=== PATIENT | male | born 1970 | race Caucasian/White ===

== ENCOUNTER 2025-03-29 14:26 | Inpatient (IN) | payer OTHER ==
[2025-03-29] VITALS (9 sets, daily range): BP systolic 119–152; BP diastolic 78–98; TEMP 98.5; O2SAT 94–99
[~2025-03-29] VITALS: Ht 182.9 cm; Wt 169.6 kg
[2025-03-29 14:47] LABS: BASOPHILS % (AUTO) 0.2 % (0.0-2.0); DIFFERENTIAL COMMENT 1; EOSINOPHILS # (AUTO) 0.2 K/uL (0.0-0.7); EOSINOPHILS % (AUTO) 3.7 % (0.0-7.0); HEMATOCRIT 34.5 % (36.7-47.1); LYMPHOCYTES # (AUTO) 1.4 K/uL (0.8-4.8); LYMPHOCYTES % (AUTO) 22.3 % (20.5-51.5); MEAN CORPUSCULAR HEMOGLOBIN 29.6 uug (23.8-33.4); MEAN CORPUSCULAR HGB CONC 32 g/dL (32.5-36.3); MEAN CORPUSCULAR VOLUME 93.3 fL (73.0-96.2); MONOCYTES # (AUTO) 0.7 K/uL (0.1-1.30); NEUTROPHILS % (AUTO) 62.8 % (38.5-71.5); PLATELET COUNT (AUTO) 174 K/uL (152-348); WHITE BLOOD COUNT (AUTO) 6.4 K/uL (3.6-10.2)
[2025-03-29] MEDS ORDERED: MODA100T29 PO (15:04)
[2025-03-29] MEDS ORDERED: DAPA10TA PO (15:04)
[2025-03-29] MEDS ORDERED: CHOL10005 PO (15:04)
[2025-03-29] MEDS ORDERED: GUAI177L6 PO (15:04)
[2025-03-29] MEDS ORDERED: METO25TA6 PO (15:04)
[2025-03-29] MEDS ORDERED: MAGN400O6 PO (15:04)
[2025-03-29] MEDS ORDERED: ASPI81TA31 PO (15:04)
[2025-03-29] MEDS ORDERED: APIX5TAB PO (15:04)
[2025-03-29] MEDS ORDERED: ATOR80TA PO (15:04)
[2025-03-29] MEDS ORDERED: CALC-167 PO (15:04)
[2025-03-29] MEDS ORDERED: NA P133E RC (15:04)
[2025-03-29] MEDS ORDERED: MULT-1275 PO (15:04)
[2025-03-29] MEDS ORDERED: FAMO10TA41 PO (15:04)
[2025-03-29] MEDS ORDERED: POLY17PO4 PO (15:04)
[2025-03-29] MEDS ORDERED: BUDE10.22 INH (15:04)
[2025-03-29] MEDS ORDERED: ACET-3117 PO (15:04)
[2025-03-29] MEDS ORDERED: FURO-151 PO (15:04)
[2025-03-29] MEDS ORDERED: DOCU100T2 PO (15:04)
[2025-03-29] MEDS ORDERED: FLUO20CA42 PO (15:04)
[2025-03-29] MEDS ORDERED: METO-356 PO (15:04)
[2025-03-29] MEDS ORDERED: ASCO500C6 PO (15:04)
[2025-03-29] MEDS ORDERED: AMIN236L PO (15:04)
[2025-03-29] MEDS ORDERED: MELA3CAP2 PO (15:04)
[2025-03-29] MEDS ORDERED: ACET-73 PO (15:04)
[2025-03-29] MEDS ORDERED: BISA10SU12 RC (15:04)
[2025-03-29 15:10] LABS: ABG BASE EXCESS 19.3 mmol/L (-2.0-3.0); ABG HCO3 53.1 mmol/L (21.0-28.0); ABG PCO2 142.3 mmHg (35.0-48.0); ABG PO2 308.7 mmHg (83.0-108.0); ABG TOTAL HEMOGLOBIN 11.9 G/dL (13.5-17.5); AaDO2 99.5 mmHg; COHb 0.4 % (0.5-1.5); MetHb 0.2 % (0.0-1.5)
[2025-03-29 15:10] LABS: ALBUMIN 2.8 g/dL (3.4-5.0); BILIRUBIN,DIRECT 0.2 mg/dL (0.0-0.2); BILIRUBIN,TOTAL 0.7 mg/dL (0.2-1.0); CREATININE 1.2 mg/dL (0.6-1.3); POTASSIUM 4.1 mmol/L (3.5-5.1); TOTAL PROTEIN, SERUM 8.9 g/dL (6.4-8.2)
[2025-03-29] MEDS ORDERED: BISACODYL 10 MG SUPP.RECT RC PRN (16:00)
[2025-03-29] MEDS ORDERED: HOME MED MISCELLANEOUS XX SCH ×2 (16:00)
[2025-03-29] MEDS ORDERED: MIRALAX 17 GM POWD.PACK PO PRN (16:00)
[2025-03-29] MEDS ORDERED: FLEET ENEMA 133 ML BOTTLE RC PRN (16:00)
[2025-03-29] MEDS ORDERED: ALBUTEROL SULFATE 2.5 MG/3 ML NEBU NEB PRN (16:15)
[2025-03-29] MEDS ORDERED: IPRATROPIUM BROMIDE 0.5 MG/2.5 ML NEBU NEB PRN (16:15)
[2025-03-29] MEDS ORDERED: ACETAMINOPHEN 325 MG TABLET PO PRN (16:15)
[2025-03-29] MEDS ORDERED: ONDANSETRON 4 MG/2 ML VIAL IV PRN (16:15)
[2025-03-29 16:29] LABS: ABG BASE EXCESS 17.1 mmol/L (-2.0-3.0); ABG HCO3 47.2 mmol/L (21.0-28.0); ABG PCO2 93.7 mmHg (35.0-48.0); ABG PO2 56.8 mmHg (83.0-108.0); ABG SITE RIGHT RADIAL; ABG TOTAL HEMOGLOBIN 11.8 G/dL (13.5-17.5); COHb 0.9 % (0.5-1.5); MetHb 0.2 % (0.0-1.5); O2Hb 88.1 % (94.0-98.0)
[2025-03-29] MEDS ORDERED: METOPROLOL TARTRATE 25 MG TABLET PO SCH (17:00)
[2025-03-29] MEDS: methylPREDNISolone SOD SUCC 125 MG/2 ML VIAL IV ONE (17:14)
[2025-03-29] MEDS ORDERED: methylPREDNISolone SOD SUCC 125 MG/2 ML VIAL ONE (17:14)
[2025-03-29] MEDS: CALCIUM CARB/VITAMIN D 500MG-200UNITS TABLET PO SCH (18:53)
[2025-03-29] MEDS: FAMOTIDINE 20 MG TABLET PO SCH (18:53)
[2025-03-29] MEDS ORDERED: DOCU250C14 PO (19:03)
[2025-03-29] MEDS ORDERED: ASPI-1101 PO (19:04)
[2025-03-29] MEDS ORDERED: BUDE10.2 INH (19:08)
[2025-03-29] MEDS ORDERED: BISA10SU61 RC (19:09)
[2025-03-29] MEDS ORDERED: CALC-995 PO (19:11)
[2025-03-29] MEDS: FUROSEMIDE 40 MG/4 ML VIAL IV SCH (19:55)
[2025-03-29] MEDS: ATORVASTATIN 40 MG TABLET PO SCH (20:05)
[2025-03-29] MEDS: APIXABAN 5 MG TABLET PO SCH (20:06)
[2025-03-29] MEDS ORDERED: DOCUSATE SODIUM 100 MG/10 ML LIQUID UDC NG SCH (21:00)
[2025-03-29] MEDS: methylPREDNISolone SOD SUCC 40 MG/ML VIAL IV SCH (21:28)
[2025-03-30] VITALS (29 sets, daily range): BP systolic 96–148; BP diastolic 65–118; TEMP 97.9–98.7; O2SAT 87–100
[2025-03-30 04:55] LABS: BASOPHILS % (AUTO) 0.4 % (0.0-2.0); HEMATOCRIT 36.8 % (36.7-47.1); HEMOGLOBIN 11.8 g/dL (12.5-16.3); LYMPHOCYTES # (AUTO) 0.7 K/uL (0.8-4.8); LYMPHOCYTES % (AUTO) 13.1 % (20.5-51.5); MEAN CORPUSCULAR HEMOGLOBIN 29.1 uug (23.8-33.4); MEAN CORPUSCULAR HGB CONC 32 g/dL (32.5-36.3); MEAN CORPUSCULAR VOLUME 91.3 fL (73.0-96.2); MONOCYTES # (AUTO) 0.1 K/uL (0.1-1.30); MONOCYTES % (AUTO) 1.1 % (0.0-11.0); NEUTROPHILS # (AUTO) 4.3 K/uL (1.8-8.9); NEUTROPHILS % (AUTO) 85.4 % (38.5-71.5); PLATELET COUNT (AUTO) 198 K/uL (152-348); RED BLOOD CELL COUNT(AUTO) 4.04 MIL/uL (4.06-5.63); RED CELL DISTRIBUTION WIDTH 13.8 % (12.1-16.2)
[2025-03-30 05:02] LABS: DIFFERENTIAL COMMENT 1
[2025-03-30 05:08] LABS: CALCIUM 9.6 mg/dL (8.5-10.1); MAGNESIUM 2.1 mg/dL (1.8-2.4); PHOSPHOROUS 2.4 mg/dL (2.5-4.9); POTASSIUM 4.5 mmol/L (3.5-5.1)
[2025-03-30 05:16] LABS: THYROID STIMULATING HORMONE 0.607 mIU/mL (0.358-3.740)
[2025-03-30] MEDS: ASCORBIC ACID 500 MG TABLET PO SCH (08:16)
[2025-03-30] MEDS: MULTIVITAMINS,THERAPEUTIC TABLET PO SCH (08:16)
[2025-03-30] MEDS: MODAFINIL 100 MG TABLET PO SCH (08:17)
[2025-03-30] MEDS: ASPIRIN 81 MG TAB.CHEW PO SCH (08:17)
[2025-03-30] MEDS: METOPROLOL SUCCINATE XL 25 MG TAB.SR.24H PO SCH (08:17)
[2025-03-30] MEDS: CHOLECALCIFEROL 1,000 UNIT TABLET PO SCH (08:17)
[2025-03-30] MEDS: DAPAGLIFLOZIN PROPANEDIOL 10 MG TABLET PO SCH (08:18)
[2025-03-30] MEDS: FLUOXETINE HCL 20 MG CAPSULE PO SCH (08:19)
[2025-03-30] MEDS: PROTEIN SUPPLEMENT (PROSTAT) 30 ML LIQUID PO SCH (08:20)
[2025-03-30] MEDS: CEFTRIAXONE 1 G in IV DEXTROSE 5% 50 ML IV SCH (08:44)
[2025-03-30] MEDS: DOCUSATE SODIUM 250 MG CAPSULE PO SCH (08:45)
[2025-03-30] MEDS: AZITHROMYCIN IV 500 MG in IV DEXTROSE 5% 250 ML IV SCH (08:45)
[2025-03-30] MEDS: ACETAzolamide SODIUM 500 MG VIAL IV SCH (08:47)
[2025-03-30 10:10] LABS: ABG BASE EXCESS 11.4 mmol/L (-2.0-3.0); ABG HCO3 39.6 mmol/L (21.0-28.0); ABG PCO2 72.6 mmHg (35.0-48.0); ABG PH 7.355 (7.350-7.450); ABG PO2 72.9 mmHg (83.0-108.0); ABG SITE RIGHT RADIAL; ABG TOTAL HEMOGLOBIN 12.1 G/dL (13.5-17.5); AaDO2 93.4 mmHg; COHb 0.6 % (0.5-1.5); MetHb 0.2 % (0.0-1.5); O2Hb 93.2 % (94.0-98.0)
[2025-03-30] MEDS: IPRATROPIUM BROMIDE 0.5 MG/2.5 ML NEBU NEB SCH (13:56)
[2025-03-30] MEDS: ALBUTEROL SULFATE 2.5 MG/3 ML NEBU NEB SCH (13:57)
[2025-03-30] MEDS: NEUTRA PHOS PACKET PO ONE (16:53)
[2025-03-31] VITALS (31 sets, daily range): BP systolic 89–130; BP diastolic 55–82; TEMP 96.3–98.5; O2SAT 84–100
[2025-03-31 05:03] LABS: BASOPHILS % (AUTO) 0.4 % (0.0-2.0); HEMATOCRIT 33.7 % (36.7-47.1); HEMOGLOBIN 10.9 g/dL (12.5-16.3); LYMPHOCYTES # (AUTO) 0.7 K/uL (0.8-4.8); LYMPHOCYTES % (AUTO) 8.5 % (20.5-51.5); MEAN CORPUSCULAR HEMOGLOBIN 29.4 uug (23.8-33.4); MEAN CORPUSCULAR HGB CONC 32 g/dL (32.5-36.3); MEAN CORPUSCULAR VOLUME 90.5 fL (73.0-96.2); MONOCYTES # (AUTO) 0.5 K/uL (0.1-1.30); NEUTROPHILS # (AUTO) 6.5 K/uL (1.8-8.9); NEUTROPHILS % (AUTO) 84.1 % (38.5-71.5); PLATELET COUNT (AUTO) 240 K/uL (152-348); RED BLOOD CELL COUNT(AUTO) 3.73 MIL/uL (4.06-5.63); RED CELL DISTRIBUTION WIDTH 13.9 % (12.1-16.2); WHITE BLOOD COUNT (AUTO) 7.8 K/uL (3.6-10.2)
[2025-03-31 05:12] LABS: DIFFERENTIAL COMMENT 1
[2025-03-31 05:17] LABS: CALCIUM 9.6 mg/dL (8.5-10.1); CREATININE 0.9 mg/dL (0.6-1.3); PHOSPHOROUS 2.1 mg/dL (2.5-4.9); POTASSIUM 4.9 mmol/L (3.5-5.1)
[2025-03-31 06:21] LABS: ABG PCO2 71.1 mmHg (35.0-48.0); ABG PH 7.368 (7.350-7.450); ABG SITE LEFT RADIAL; AaDO2 93.8 mmHg; COHb 0.5 % (0.5-1.5); MetHb 0.2 % (0.0-1.5); O2Hb 93.6 % (94.0-98.0)
[2025-03-31] MEDS: MAGNESIUM HYDROXIDE 30 ML LIQUID UDC PO PRN (06:37)
[2025-03-31] MEDS: NEUTRA PHOS PACKET PO ONE (11:21)
[2025-03-31] MEDS: MUPIROCIN 2% OINT 22 GM TUBE NS SCH (20:13)
[2025-03-31] MEDS: methylPREDNISolone SOD SUCC 40 MG/ML VIAL IV SCH (20:14)
[2025-04-01] VITALS (19 sets, daily range): BP systolic 91–125; BP diastolic 49–91; TEMP 97.6–98; O2SAT 90–99
[2025-04-01 05:06] LABS: BASOPHILS % (AUTO) 0.3 % (0.0-2.0); HEMATOCRIT 34.4 % (36.7-47.1); HEMOGLOBIN 11.1 g/dL (12.5-16.3); LYMPHOCYTES # (AUTO) 1.2 K/uL (0.8-4.8); LYMPHOCYTES % (AUTO) 13.9 % (20.5-51.5); MEAN CORPUSCULAR HEMOGLOBIN 29.2 uug (23.8-33.4); MEAN CORPUSCULAR HGB CONC 32 g/dL (32.5-36.3); MEAN CORPUSCULAR VOLUME 90.1 fL (73.0-96.2); MONOCYTES # (AUTO) 0.5 K/uL (0.1-1.30); MONOCYTES % (AUTO) 6.2 % (0.0-11.0); NEUTROPHILS # (AUTO) 6.7 K/uL (1.8-8.9); NEUTROPHILS % (AUTO) 79.6 % (38.5-71.5); PLATELET COUNT (AUTO) 248 K/uL (152-348); RED BLOOD CELL COUNT(AUTO) 3.81 MIL/uL (4.06-5.63); RED CELL DISTRIBUTION WIDTH 14.1 % (12.1-16.2); WHITE BLOOD COUNT (AUTO) 8.5 K/uL (3.6-10.2)
[2025-04-01 05:10] LABS: DIFFERENTIAL COMMENT 1
[2025-04-01 05:34] LABS: ALBUMIN 2.7 g/dL (3.4-5.0); BILIRUBIN,DIRECT 0.1 mg/dL (0.0-0.2); BILIRUBIN,TOTAL 0.4 mg/dL (0.2-1.0); CALCIUM 9.2 mg/dL (8.5-10.1); MAGNESIUM 2.3 mg/dL (1.8-2.4); PHOSPHOROUS 2.3 mg/dL (2.5-4.9); POTASSIUM 4.7 mmol/L (3.5-5.1); THYROID STIMULATING HORMONE 0.966 mIU/mL (0.358-3.740); TOTAL PROTEIN, SERUM 8.3 g/dL (6.4-8.2)
[2025-04-01] MEDS: CEFTRIAXONE 2 G in IV DEXTROSE 5% 100 ML IV SCH (08:06)
[2025-04-01] MEDS: FUROSEMIDE 40 MG TABLET PO SCH (09:33)
[2025-04-01] MEDS: VANCOMYCIN IV 2,000 MG in IV DEXTROSE 5% 500 ML IV SCH (10:42)
[2025-04-01] MEDS: NEUTRA PHOS PACKET PO ONE (16:25)
[2025-04-02] VITALS (13 sets, daily range): BP systolic 99–115; BP diastolic 52–69; TEMP 97.8–98.8; O2SAT 95–100
[2025-04-02 06:47] LABS: BASOPHILS % (AUTO) 0.5 % (0.0-2.0); EOSINOPHILS % (AUTO) 0.1 % (0.0-7.0); HEMATOCRIT 35.3 % (36.7-47.1); HEMOGLOBIN 11.1 g/dL (12.5-16.3); LYMPHOCYTES # (AUTO) 1.2 K/uL (0.8-4.8); LYMPHOCYTES % (AUTO) 14.1 % (20.5-51.5); MEAN CORPUSCULAR HEMOGLOBIN 28.9 uug (23.8-33.4); MEAN CORPUSCULAR HGB CONC 32 g/dL (32.5-36.3); MEAN CORPUSCULAR VOLUME 91.7 fL (73.0-96.2); MONOCYTES # (AUTO) 0.5 K/uL (0.1-1.30); MONOCYTES % (AUTO) 6.6 % (0.0-11.0); NEUTROPHILS # (AUTO) 6.5 K/uL (1.8-8.9); NEUTROPHILS % (AUTO) 78.7 % (38.5-71.5); PLATELET COUNT (AUTO) 261 K/uL (152-348); RED BLOOD CELL COUNT(AUTO) 3.85 MIL/uL (4.06-5.63); RED CELL DISTRIBUTION WIDTH 14.3 % (12.1-16.2); WHITE BLOOD COUNT (AUTO) 8.3 K/uL (3.6-10.2)
[2025-04-02 06:55] LABS: DIFFERENTIAL COMMENT 1
[2025-04-02 06:58] LABS: CALCIUM 9.4 mg/dL (8.5-10.1); MAGNESIUM 2.3 mg/dL (1.8-2.4); PHOSPHOROUS 3.2 mg/dL (2.5-4.9)
[2025-04-02] MEDS: AZITHROMYCIN 250 MG TABLET PO SCH (09:25)
[2025-04-02] MEDS: methylPREDNISolone SOD SUCC 40 MG/ML VIAL IV SCH (09:26)
[2025-04-03] VITALS (12 sets, daily range): BP systolic 95–154; BP diastolic 52–78; TEMP 97.3–98; O2SAT 95–99
[2025-04-03 06:51] LABS: BASOPHILS % (AUTO) 0.2 % (0.0-2.0); EOSINOPHILS % (AUTO) 0.1 % (0.0-7.0); HEMATOCRIT 36.7 % (36.7-47.1); HEMOGLOBIN 11.9 g/dL (12.5-16.3); LYMPHOCYTES # (AUTO) 1.4 K/uL (0.8-4.8); LYMPHOCYTES % (AUTO) 15.2 % (20.5-51.5); MEAN CORPUSCULAR HEMOGLOBIN 29.5 uug (23.8-33.4); MEAN CORPUSCULAR HGB CONC 33 g/dL (32.5-36.3); MEAN CORPUSCULAR VOLUME 90.8 fL (73.0-96.2); MONOCYTES # (AUTO) 0.6 K/uL (0.1-1.30); NEUTROPHILS % (AUTO) 77.5 % (38.5-71.5); PLATELET COUNT (AUTO) 289 K/uL (152-348); RED BLOOD CELL COUNT(AUTO) 4.04 MIL/uL (4.06-5.63)
[2025-04-03 06:59] LABS: CALCIUM 9.5 mg/dL (8.5-10.1); CREATININE 0.9 mg/dL (0.6-1.3); MAGNESIUM 2.2 mg/dL (1.8-2.4); PHOSPHOROUS 3.6 mg/dL (2.5-4.9); POTASSIUM 4.6 mmol/L (3.5-5.1)
[2025-04-03 07:10] LABS: DIFFERENTIAL COMMENT 1
[2025-04-03] MEDS: REMEDY ESSENTIAL ZINC PASTE 113 GM TP PRN (09:15)
[2025-04-03] MEDS: predniSONE 20 MG TABLET PO SCH (09:19)
[2025-04-03] MEDS ORDERED: ACET325T53 PO (14:20)
[2025-04-03] MEDS ORDERED: PRED20TA PO (14:20)
[2025-04-03] MEDS ORDERED: ALBU2.5V7 NEB (14:20)
[2025-04-03] MEDS ORDERED: PROT30LI PO (14:20)
[2025-04-03] MEDS ORDERED: MUPI22OI2 NS (14:20)
[2025-04-03] MEDS ORDERED: IPRA0.2S6 NEB (14:20)
[2025-04-03] MEDS ORDERED: ATOR40TA PO (14:20)
== END 2025-04-03 20:18 | DRG 194 ==
LOC: ER 14:32 → CCU 16:33 → TELE3 04-01 18:19
PROVIDERS: ADMIT Nurse Practitioner Acute Care; ATTEND Nurse Practitioner Acute Care
PROC: 5A09457 Assistance with Respiratory Ventilation, 24-96 Consecutive Hours, Continuous Positive Airway Pressure (ICD-10-PCS; principal; 2025-03-29)
DX: I50.33 Acute on chronic diastolic (congestive) heart failure (principal); J96.21 Acute and chronic respiratory failure with hypoxia; G93.41 Metabolic encephalopathy; E44.0 Moderate protein-calorie malnutrition; D68.59 Other primary thrombophilia; D68.69 Other thrombophilia; J15.9 Unspecified bacterial pneumonia; D63.8 Anemia in other chronic diseases classified elsewhere; E83.39 Other disorders of phosphorus metabolism; J44.0 Chronic obstructive pulmonary disease with (acute) lower respiratory infection; I11.0 Hypertensive heart disease with heart failure; E88.09 Other disorders of plasma-protein metabolism, not elsewhere classified; I27.20 Pulmonary hypertension, unspecified; Z79.01 Long term (current) use of anticoagulants; Z68.43 Body mass index [BMI] 50.0-59.9, adult; J44.1 Chronic obstructive pulmonary disease with (acute) exacerbation; J96.22 Acute and chronic respiratory failure with hypercapnia; E66.01 Morbid (severe) obesity due to excess calories; G47.33 Obstructive sleep apnea (adult) (pediatric); E78.5 Hyperlipidemia, unspecified; Z86.711 Personal history of pulmonary embolism; I25.10 Atherosclerotic heart disease of native coronary artery without angina pectoris; R73.9 Hyperglycemia, unspecified; T38.0X5A Adverse effect of glucocorticoids and synthetic analogues, initial encounter; Y92.230 Patient room in hospital as the place of occurrence of the external cause; G47.00 Insomnia, unspecified; F32.A Depression, unspecified; Z82.49 Family history of ischemic heart disease and other diseases of the circulatory system; Z86.718 Personal history of other venous thrombosis and embolism; Z91.013 Allergy to seafood; Z74.01 Bed confinement status; J20.9 Acute bronchitis, unspecified; J98.11 Atelectasis
CPT/HCPCS: 36415; 36600; 71045; 82785; 82803; 83605; 83735; 84100; 84443; 85025; 85730; 87040; 87070; 93307; 94640; 94660; 94760; 99082-TC; A4606; A4663; A6213; G0378; J0456; J0696; J1120; J1938; J2919; J3370; J3590; J7042; J7050; J7060; J7512; Q0144